=== PATIENT | female | born 1990 | race Caucasian/White ===

== ENCOUNTER 2017-08-25 19:57 | Emergency (ER) | payer OTHER ==
[~2017-08-25] VITALS: Ht 157.5 cm; Wt 60.6 kg
[2017-08-25] MEDS ORDERED: PREN1TAB60 PO (20:26)
[2017-08-25 21:00] LABS: HEMOGLOBIN 12.1 g/dL (11.7-16.4); WHITE BLOOD COUNT 12.8 x10^3/uL (3.4-10)
[2017-08-25 21:03] LABS: RAPID INFLUENZA A Negative (Negative); RAPID INFLUENZA B Negative (Negative)
[2017-08-25 21:13] LABS: ASPARTATE AMINO TRANSFERASE 21 U/L (15-37); BLOOD UREA NITROGEN 12 mg/dL (7-18)
[2017-08-25 22:58] VITALS: BP 94/54
== END 2017-08-25 23:00 | disposition home or self-care (01) ==
LOC: ED 21:35
DX: B34.9 Viral infection, unspecified (principal)
CPT/HCPCS: 36415; 80053; 81001; 83690; 85025; 87086; 87400; 99284